=== PATIENT | male | born 1995 | race Hispanic/Latino ===

== ENCOUNTER 2022-02-03 10:43 | Emergency (ER) | payer SELFPAY ==
--- NOTE | 2022-02-03 12:54 | ER ---
Nurse's Notes [facility] Name: Franklin Karimi Age: 26 yrs Sex: Male : 1995 Arrival Date: 02/03/2022 Time: 10:46 Bed Waiting Private MD: Diagnosis: Presentation: 02/03 11:28 Chief complaint: Patient states: N/V that began 2 weeks ago. Pt reports he became ss lightheaded today at work and was sent home. Coronavirus screen: Client denies travel out of the [place] in the last 14 days. Ebola Screen: Patient denies exposure to infectious person. Patient denies travel to an Ebola-affected area in the 21 days before illness onset. Initial Sepsis Screen: Does the patient meet any 2 criteria? No. Patient's initial sepsis screen is negative. Does the patient have a suspected source of infection? No. Patient's initial sepsis screen is negative. Risk Assessment: Do you want to hurt yourself or someone else? Patient reports no desire to harm self or others. Onset of symptoms was February 19, 2022. 11:28 Method Of Arrival: Ambulatory 11:28 Acuity: ELEAZAR 3 ss Historical: - Allergies: 11:30 Ceclor; ss - Home Meds: 11:30 None [Active]; ss - PMHx: 11:30 Asthma; ss - PSHx: 11:30 None; ss - Immunization history:: Client reports having NOT received the Covid vaccine. - Social history:: Smoking status: Reported history of juuling and/or vaping. Vital Signs: 11:28 BP 125 / 80; Pulse 70; Resp 14; Temp 98.2(TE); Pulse Ox 99% ; Weight 84.82 kg; Height 6 ss ft. 0 in. (182.88 cm); Pain 6/10; 11:28 Body Mass Index 25.36 (84.82 kg, 182.88 cm) ED Course: 10:46 Patient arrived in ED. rg4 10:46 Manuel Tenorio PA is PHCP. berenicem 10:47 David Mills DO is Attending Physician. jmm 11:30 Triage completed. ss 11:30 Arm band placed on right wrist. ss Administered Medications: No medications were administered Outcome: 12:53 Patient left the ED. vg1 Signatures: Manuel Tenorio PA PA jmm Smirch, Shelby, RN RN ss Lisset Castano4 Ese Castano RN RN vg1 Corrections: (The following items were deleted from the chart) 30 11:30 PMHx: None; [facility]
[2022-02-03 14:23] VITALS: BP 125/80; TEMP 98.2; O2SAT 99
== END 2022-02-03 12:53 | disposition left against medical advice (07) ==
LOC: ER 10:43
DX: Z02.9 Encounter for administrative examinations, unspecified (principal)